=== PATIENT | female | born 1965 ===

== ENCOUNTER 2024-02-28 15:08 | Outpatient (REF) | payer BC, SELFPAY ==
[2024-02-28 15:09] LABS: Hemoglobin A1C 5.5 % (<5.7)
[2024-02-28 15:17] LABS: Anion Gap 5.2 mmol/L (3-11); BUN 16 mg/dL (7-18); CO2 29.8 mmol/L (21.0-32.0); Calcium 9.6 mg/dL (8.5-10.1); Calculated LDL 150 mg/dL (<100); Chloride 106 mmol/L (98-107); Cholesterol 238 mg/dL (<200); Estimated GFR 65.71 (mL/min/1.73m2); Glucose 76 mg/dL (74-106); HDL Cholesterol 65 mg/dL (40-60); Potassium 4.7 mmol/L (3.5-5.1); Sodium 141 mmol/L (136-145); Triglyceride 117 mg/dL (<150)
== END 2024-02-28 15:09 | disposition home or self-care (01) ==
LOC: NCHCN 15:08
PROVIDERS: Visit Provider Internal Medicine
DX: E03.9 Hypothyroidism, unspecified (principal); E78.5 Hyperlipidemia, unspecified
CPT/HCPCS: 80048; 80061; 83036; 84443

== ENCOUNTER 2025-02-24 16:40 | Outpatient (REF) | payer BC, SELFPAY ==
[2025-02-24 18:45] LABS: ALT 24 U/L (14-59); AST 17 U/L (15-37); Albumin 3.7 g/dL (3.4-5.0); Alkaline Phosphatase 71 U/L (46-116); Anion Gap 6.9 mmol/L (3-11); BUN 17 mg/dL (7-18); Bilirubin, Total 1.0 mg/dL (0.2-1.0); CO2 29.1 mmol/L (21.0-32.0); Calcium 8.9 mg/dL (8.5-10.1); Calculated LDL 140 mg/dL (<100); Chloride 108 mmol/L (98-107); Cholesterol 211 mg/dL (<200); Estimated GFR 74.10 (mL/min/1.73m2); Glucose 111 mg/dL (74-106); HDL Cholesterol 55 mg/dL (>or=50); Potassium 4.5 mmol/L (3.5-5.1); Sodium 144 mmol/L (136-145); TSH 2.75 uIU/mL (0.36-3.74); Total Protein 6.8 g/dL (6.4-8.2); Triglyceride 84 mg/dL (<150)
[2025-02-24 18:49] LABS: Hemoglobin A1C 5.3 % (<5.7)
== END 2025-02-24 16:41 | disposition home or self-care (01) ==
LOC: NCHCN 16:40
PROVIDERS: Internal Medicine; Visit Provider Family Medicine
DX: Z00.00 Encounter for general adult medical examination without abnormal findings (principal); R73.03 Prediabetes; E03.9 Hypothyroidism, unspecified; E78.5 Hyperlipidemia, unspecified
CPT/HCPCS: 80053; 80061; 83036; 84443